=== PATIENT | male | born 1965 | race African-American/Black ===

== ENCOUNTER 2020-03-09 19:16 | Emergency (ER) | payer OTHER, SELFPAY ==
--- NOTE | 2020-03-09 19:28 | ED.DENTAL ---
HPI - Dental/Oral General Chief complaint: Dental/Oral Stated complaint: tooth pain Time Seen by Provider: 03/09/20 19:28 Source: patient and RN notes reviewed Mode of arrival: ambulatory Limitations: no limitations History of Present Illness HPI Narrative: 54-year-old male presents to the [facility] with complaints of dental pain and swelling. Has very poor dentition. With multiple teeth already removed. Patient states that he has an appointment in April or May with a dental provider in [place]. Has put a dental long filler cigar roller machine the tooth. Has swelling left lower gum, right upper gum with lymphadenopathy Related Data Allergies Allergy/AdvReac Type Severity Reaction Status Date / Time peanut Allergy Mild SWELL ITCH Verified 06/07/17 23:46 COCONUT Allergy Mild SWELL ITCH Uncoded 06/07/17 23:46 Review of Systems Review of Systems: Narrative: CONSTITUTIONAL: Denies fever, chills, or sweats. EYES: Denies visual changes, redness, or discharge. ENT: Denies rhinorrhea, congestion, sore throat, or otalgia. Dental pain of left upper, left lower CARDIOVASCULAR: Denies chest pain, palpitations, or edema. RESPIRATORY: Denies cough or dyspnea. GASTROINTESTINAL: Denies abdominal pain, nausea, vomiting, or diarrhea. GENITOURINARY: Denies dysuria or hematuria. SKIN: Denies rash or itching. MUSCULOSKELETAL: Denies back pain, joint pain, or myalgia. NEUROLOGIC: Denies headache, numbness, or weakness. PSYCHIATRIC: Denies anxiety or depression. All other systems reviewed are negative, except as documented in HPI. PMFSH Comments At the time of my signature, I reviewed and agree with the nursing past medical, surgical, social, and family history. There is no relevant family history pertinent to the patient complaint. Exam Narrative: Exam Narrative: GENERAL: This is a well-nourished, well-developed patient, in no apparent distress. HEAD: normocephalic, atraumatic. EYES: PERRL. Sclera clear/white. Vision is grossly intact. EARS: External ears normal, auditory canals clear and without drainage, TMs normal without perforation. Hearing grossly intact. NOSE: External nose normal with no obvious nasal discharge, nares without redness, no rhinorrhea. THROAT: Mucous membranes moist, posterior pharynx clear. Swelling to the gum of the left upper and left lower area. Very poor dentition with multiple cavities and missing teeth NECK: Neck supple, right non-tender without lymphadenopathy, masses or thyromegaly. Left tenderness with lymphadenopathy CARDIOVASCULAR: Regular rate and rhythm without murmurs, gallops, or rubs. RESPIRATORY: Clear to auscultation. Breath sounds equal bilaterally. No wheezes, rales, or rhonchi. GASTROINTESTINAL: Abdomen soft, non-tender, nondistended. Bowel sounds are active. No hepato-splenomegaly, or palpable masses. No guarding. SKIN: warm, intact with no suspicious lesions or rash, good texture and turgor. NEURO: awake, alert, and oriented to person, place and time. There were no obvious focal neurologic abnormalities. EXTREMITIES: No clubbing, cyanosis, or edema. No joint tenderness, effusion, or edema noted. No calf tenderness. Negative Homans sign bilaterally. BACK: Nontender without deformity or crepitance. No flank tenderness. Course Vital Signs Vital signs: Vital Signs Temperature 98.9 F 03/09/20 19:34 Pulse Rate 81 03/09/20 19:34 Respiratory Rate 16 03/09/20 19:34 Blood Pressure 155/81 H 03/09/20 19:34 Pulse Oximetry 100 03/09/20 19:34 Temperature 98.9 F 03/09/20 19:34 Pulse Rate 81 03/09/20 19:34 Respiratory Rate 16 03/09/20 19:34 Blood Pressure 155/81 H 03/09/20 19:34 Pulse Oximetry 100 03/09/20 19:34 Reviewed. Discussed with patient that he has an elevated blood pressure. Patient reports a history of high blood pressure and needs a new primary care provider a list has been given to him MDM - Dental/Oral Differential Diagnosis Differential diagnosis: Likely gingival abscess, den
[2020-03-09 19:34] VITALS: BP 155/81; PULSE 81; RESP 16; TEMP 37.2; O2SAT 100
== END 2020-03-09 19:52 | disposition home or self-care (01) ==
PROVIDERS: Emergency Provider Nurse Practitioner
DX: K04.7 Periapical abscess without sinus (principal)
CPT/HCPCS: 99213; G0463

== ENCOUNTER 2023-07-31 13:55 | Emergency (ER) | payer OTHER, SELFPAY ==
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
[2023-07-31 14:05] VITALS: BP 138/90; PULSE 67; RESP 16; TEMP 36.4; O2SAT 100
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
== END 2023-07-31 15:08 | disposition home or self-care (01) ==
PROVIDERS: Emergency Provider Nurse Practitioner Family
DX: S39.012A Strain of muscle, fascia and tendon of lower back, initial encounter (principal); S16.1XXA Strain of muscle, fascia and tendon at neck level, initial encounter; V89.2XXA Person injured in unspecified motor-vehicle accident, traffic, initial encounter
CPT/HCPCS: 72100; 99213; G0463